=== PATIENT | female | born 1960 | race Caucasian/White ===

== ENCOUNTER 2018-05-01 15:46 | Emergency (ER) | payer OTHER ==
[~2018-05-01] VITALS: Ht 160 cm; Wt 73.0 kg
[2018-05-01 16:18] LABS: ABSOLUTE BASOPHILS 0.1 thou/uL (0.0-0.2); ABSOLUTE EOSINOPHILS 0.1 thou/uL (0.0-0.7); ABSOLUTE LYMPHOCYTES 2.5 thou/uL (0.8-5.3); ABSOLUTE MONOCYTES 0.4 thou/uL (0.0-1.2); ABSOLUTE NEUTROPHILS 3.4 thou/uL (1.6-8.1); BASOPHILS 1.1 %; EOSINOPHILS 0.9 %; HEMATOCRIT 43.6 % (37.0-47.0); HEMOGLOBIN 14.4 gm/dL (12.0-15.0); LYMPHOCYTES 39.1 %; MCH 29.1 pg (26.0-34.0); MCHC 33.1 g/dL (28.0-37.0); MCV 87.9 fL (80.0-100.0); MONOCYTES 6.7 %; MPV 8.6 fl. (7.2-11.1); NUCLEATED RBCS 0 /100WBC; PLATELET COUNT* 167 thou/uL (150-400); POLYS 52.2 %; RBC 4.96 mil/uL (4.20-5.00); RDW-CV 14.1 % (10.5-14.5); WBC 6.5 thou/uL (4.0-11.0)
[2018-05-01 16:24] LABS: ANION GAP 4 mmol/L (7-16); BUN 13 mg/dL (7-18); CHLORIDE 101 mmol/L (98-107); CO2 34 mmol/L (21-32); GLUCOSE 102 mg/dL (70-99); POTASSIUM 3.3 mmol/L (3.5-5.1); SODIUM 139 mmol/L (136-145)
[2018-05-01 16:28] LABS: APTT 26.8 Seconds (25.0-31.3)
[2018-05-01 16:43] LABS: ALBUMIN 3.9 g/dL (3.4-5.0); ALKALINE PHOSPHATASE 108 U/L (46-116); CK-MB MASS 0.5 ng/mL (<0.5-3.6); LIPASE 164 U/L (73-393); NT-PRO BRAIN NAT PEPTIDE 82 pg/mL (<300); SGOT 20 U/L (15-37); SGPT 24 U/L (30-65); TOTAL BILIRUBIN 0.5 mg/dL (<0.1-1.0); TOTAL PROTEIN 7.2 g/dL (6.4-8.2); TROPONIN-I LEVEL <0.06 ng/mL (<0.06)
[2018-05-01 16:55] VITALS: BP 102/63
--- NOTE | 2018-05-02 13:52 | EKG ---
[place] [address] ELECTROCARDIOGRAM REPORT Name: AURELIA ALMEIDA [id number] Admission: 05/01/18 Attend Phys: Discharge: 05/01/18 Date of : 58 Report #: [id number] THIS REPORT FOR: //name// [facility] ED Test Date: 2018-05-01 Test Time: 15:53:45 Pat Name: AURELIA ALMEIDA Department: Room: Gender: F [employer] Specialist: DON : 1960 Requested By: Antony Casey Order Number: [id number] MD: Alfred Stauffer Measurements Intervals [place] Rate: 71 P: 60 SC: 138 QRS: 46 QRSD: 96 T: 239 QT: 346 QTc: 376 Interpretive Statements Sinus rhythm Ventricular premature complex Probable left atrial enlargement Borderline repolarization abnormality No previous ECG available for comparison Electronically Signed On 05-02-2018 13:52:36 CDT by Alfred Stauffer [email or web address] <ELECTRONICALLY SIGNED> By: Alfred Stauffer MD, FACC 05/02/18 1352 1553 1553 Alfred Stauffer MD, FACC /EPI
== END 2018-05-01 16:56 | disposition home or self-care (01) ==
LOC: M.ERS 15:46
PROVIDERS: Family Medicine
DX: R53.1 Weakness (principal); R22.31 Localized swelling, mass and lump, right upper limb; R22.32 Localized swelling, mass and lump, left upper limb; I10 Essential (primary) hypertension; Z90.49 Acquired absence of other specified parts of digestive tract; Z88.6 Allergy status to analgesic agent